=== PATIENT | male | born 1980 | race African-American/Black ===

== ENCOUNTER 2017-12-04 08:20 | Inpatient (IN) | payer OTHER ==
[2017-12-04 08:59] VITALS: BMI 24.6
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
[2017-12-04] MEDS ORDERED: P-EPHED 60MG/TRIPROLIDI 2.5MG TABLET PO PRN (09:39)
[2017-12-04] MEDS ORDERED: hydrOXYzine PAMOATE 25 MG CAPSULE (FP) PO PRN (09:39)
[2017-12-04] MEDS ORDERED: chlordiazePOXIDE HCL 25 MG CAPSULE PO PRN (09:39)
[2017-12-04] MEDS ORDERED: guaiFENesin/D-METHORPHAN HB 10 ML UNIT-DOSE CUPS PO PRN (09:39)
[2017-12-04] MEDS ORDERED: IBUPROFEN 400 MG TABLET (FP) PO PRN (09:39)
[2017-12-04] MEDS ORDERED: LOPERAMIDE HCL 2 MG CAPSULE PO PRN (09:39)
[2017-12-04] MEDS ORDERED: MAGNESIUM CITRATE 300 ML BOTTLE PO PRN (09:39)
[2017-12-04] MEDS ORDERED: MAG HYDROX/AL HYDROX/SIMETH 30 ML UNIT-DOSE CUP PO PRN (09:39)
[2017-12-04] MEDS ORDERED: ACETAMINOPHEN 325 MG TABLET (FP) PO PRN (09:39)
[2017-12-04] MEDS ORDERED: MAGNESIUM HYDROX 2400MG/30ML ORAL SUSPENSION 30 ML CUP PO PRN (09:39)
[2017-12-04] MEDS ORDERED: NICOTINE POLACRILEX 4 MG GUM BUC PRN (09:39)
[2017-12-04] MEDS ORDERED: MENTHOL/PHENOL 1 EACH UD MM PRN (09:39)
[2017-12-04] MEDS ORDERED: chlordiazePOXIDE HCL 25 MG CAPSULE PO ONE (11:00)
[2017-12-04] MEDS: PRENATAL VITAMINS W/ FOLIC ACID TABLET (FP) PO SCH (11:31)
[2017-12-04] MEDS: chlordiazePOXIDE HCL 25 MG CAPSULE PO SCH ×3 (11:31→22:07)
--- NOTE | 2017-12-04 15:41 | EKG ---
Test Reason : Blood Pressure : / mmHG Vent. Rate : 087 BPM Atrial Rate : 087 BPM P-R Int : 146 ms QRS Dur : 078 ms QT Int : 382 ms P-R-T Axes : 018 012 038 degrees QTc Int : 459 ms NORMAL SINUS RHYTHM NORMAL ECG NO PREVIOUS ECGS AVAILABLE Confirmed by MD Lester, Rajesh ([id number]) on 12/04/2017 3:40:47 PM Referred By: Confirmed By:Rajesh Batista MD
[2017-12-04 18:31] LABS: URINE APPEARANCE CLOUDY; URINE BILIRUBIN NEGATIVE (<2.0 mg/dL); URINE COLOR AMBER; URINE GLUCOSE (UA) NEGATIVE (NEGATIVE); URINE KETONE 1+ (NEGATIVE); URINE NITRITE NEGATIVE (NEGATIVE); URINE UROBILINOGEN 4.0 E.U/dl mg/dL (0.2-1.0)
[2017-12-04 18:42] LABS: URINE LEUK ESTERASE 2+ (NEGATIVE); URINE PROTEIN 2+ (NEGATIVE)
[2017-12-04 18:45] LABS: EPI CELLS FEW /HPF (FEW); URINE HYALINE CAST 3 /lpf; URINE MUCUS MANY
[2017-12-04] MEDS ORDERED: MELATONIN 5 MG TABLETS PO PRN (22:00)
[2017-12-04] MEDS: THIAMINE HCL 100 MG TABLET (FP) PO SCH (22:07)
[2017-12-05] MEDS: chlordiazePOXIDE HCL 25 MG CAPSULE PO SCH ×4 (05:22→22:10)
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
[2017-12-05 10:17] LABS: HEMATOCRIT 38.2 % (35.4-49); HEMOGLOBIN 12.8 GM/dL (11.7-16.9); MCH 32.5 pg (25.7-33.7); MCHC 33.6 g/dl (32.0-35.9); MEAN CELL VOLUME 96.8 fl (80-96); MEAN PLT VOLUME 9.1 fl (7.5-11.1); PLATELET COUNT 156 K/MM3 (134-434); RBC 3.95 M/mm3 (4.00-5.60); RDW 13.8 % (11.9-15.9); WHITE BLOOD COUNT 3.4 K/mm3 (4.0-10.0)
[2017-12-05] MEDS: PRENATAL VITAMINS W/ FOLIC ACID TABLET (FP) PO SCH (10:23)
[2017-12-05 10:25] LABS: ALBUMIN 3.2 g/dl (3.4-5.0); ALK PHOS 73 U/L (45-117); ANION GAP 9 MMOL/L (8-16); BILIRUBIN,TOTAL 0.7 mg/dL (0.2-1); BLOOD UREA NITROGEN 13 mg/dL (7-18); CALCIUM 8.6 mg/dL (8.5-10.1); CHLORIDE 103 mmol/L (98-107); CO2 27 mmol/L (21-32); CREATININE 0.6 mg/dL (0.55-1.3); GLUCOSE,RANDOM 110 mg/dL (74-106); POTASSIUM 3.5 mmol/L (3.5-5.1); SGOT/AST 77 U/L (15-37); SGPT/ALT 78 U/L (13-61); SODIUM 139 mmol/L (136-145); TOT PROT 6.5 g/dl (6.4-8.2)
--- NOTE | 2017-12-05 16:00 | PN ---
S CIWA - CIWA Score Nausea/Vomitin Muscle Tremors: 4-Moderate,w/Arms Extend Anxiety: 4-Mod. Anxious/Guarded Agitation: 4-Moderately Restless Paroxysmal Sweats: 3 Orientation: 0-Oriented Tacttile Disturbances: 0-None Auditory Disturbances: 0-None Visual Disturbances: 0-None Headache: 1-Very Mild CIWA-Ar Total Score: 19 BHS Progress Note (SOAP) Subjective: Tremor, interrupted sleep, sweating Objective: 12/05/17 15:56 Last Vital Signs Temp Pulse Resp BP Pulse Ox 96.2 F L 108 H 16 120/81 12/05/17 13:37 12/05/17 13:37 12/05/17 13:37 12/05/17 13:37 Laboratory Tests 12/04/17 12/05/17 12/05/17 12:03 07:30 07:30 WBC 3.4 L RBC 3.95 L Hgb 12.8 Hct 38.2 MCV 96.8 H MCH 32.5 MCHC 33.6 RDW 13.8 Plt Count 156 MPV 9.1 Sodium 139 Potassium 3.5 Chloride 103 Carbon Dioxide 27 Anion Gap 9 BUN 13 Creatinine 0.6 Creat Clearance w eGFR > 60 Random Glucose 110 H Calcium 8.6 Total Bilirubin 0.7 AST 77 H ALT 78 H Alkaline Phosphatase 73 Total Protein 6.5 Albumin 3.2 L Urine Color Janina Urine Appearance Cloudy Urine pH 5.0 Ur Specific [place] 1.027 Urine Protein 2+ H Urine Glucose (UA) Negative Urine Ketones 1+ H Urine Blood 2+ H Urine Nitrite Negative Urine Bilirubin Negative Urine Urobilinogen 4.0 e.u/dl Ur Leukocyte Esterase 2+ H Urine WBC (Auto) 184 Urine RBC (Auto) 48 Ur Epithelial Cells Few Hyaline Casts 3 Urine Mucus Many RPR Titer 12/05/17 07:30 WBC RBC Hgb Hct MCV MCH MCHC RDW Plt Count MPV Sodium Potassium Chloride Carbon Dioxide Anion Gap BUN Creatinine Creat Clearance w eGFR Random Glucose Calcium Total Bilirubin AST ALT Alkaline Phosphatase Total Protein Albumin Urine Color Urine Appearance Urine pH Ur Specific [place] Urine Protein Urine Glucose (UA) Urine Ketones Urine Blood Urine Nitrite Urine Bilirubin Urine Urobilinogen Ur Leukocyte Esterase Urine WBC (Auto) Urine RBC (Auto) Ur Epithelial Cells Hyaline Casts Urine Mucus RPR Titer Nonreactive Labs reviewed: abnormal UA Assessment: 12/05/17 15:58 Withdrawal symptoms Noted with abnormal UA Plan: Continue detox Abnormal UA: encouraged PO water hydration, repeat UA, send urine C&S to rule out UTI
[2017-12-05 20:47] LABS: URINE APPEARANCE CLEAR; URINE BILIRUBIN NEGATIVE (<2.0 mg/dL); URINE COLOR YELLOW; URINE GLUCOSE (UA) NEGATIVE (NEGATIVE); URINE KETONE NEGATIVE (NEGATIVE); URINE NITRITE NEGATIVE (NEGATIVE); URINE PROTEIN NEGATIVE (NEGATIVE); URINE UROBILINOGEN NEGATIVE mg/dL (0.2-1.0)
[2017-12-05 21:13] LABS: URINE LEUK ESTERASE 3+ (NEGATIVE)
[2017-12-05 21:17] LABS: EPI CELLS RARE /HPF (FEW); URINE MUCUS RARE
[2017-12-05] MEDS: THIAMINE HCL 100 MG TABLET (FP) PO SCH (22:10)
[2017-12-06] MEDS: chlordiazePOXIDE HCL 25 MG CAPSULE PO SCH (05:50)
[2017-12-06] MEDS: PRENATAL VITAMINS W/ FOLIC ACID TABLET (FP) PO SCH (10:26)
[2017-12-06] MEDS: chlordiazePOXIDE 5 MG CAPSULE PO SCH ×3 (10:26→22:03)
--- NOTE | 2017-12-06 12:06 | PN ---
S CIWA - CIWA Score Nausea/Vomitin Muscle Tremors: 4-Moderate,w/Arms Extend Anxiety: 3 Agitation: 3 Paroxysmal Sweats: 3 Orientation: 0-Oriented Tacttile Disturbances: 0-None Auditory Disturbances: 0-None Visual Disturbances: 0-None Headache: 1-Very Mild CIWA-Ar Total Score: 16 S Progress Note (SOAP) Subjective: Interrupted sleep, c/o fungus to feet and requesting cream Objective: 12/06/17 12:01 Last Vital Signs Temp Pulse Resp BP Pulse Ox 97.7 F 89 18 111/83 12/06/17 09:59 12/06/17 09:59 12/06/17 09:59 12/06/17 09:59 PE: feet/heel dry with whitish moist areas between toes Laboratory Tests 12/04/17 12/05/17 12/05/17 12:03 07:30 07:30 WBC 3.4 L RBC 3.95 L Hgb 12.8 Hct 38.2 MCV 96.8 H MCH 32.5 MCHC 33.6 RDW 13.8 Plt Count 156 MPV 9.1 Sodium 139 Potassium 3.5 Chloride 103 Carbon Dioxide 27 Anion Gap 9 BUN 13 Creatinine 0.6 Creat Clearance w eGFR > 60 Random Glucose 110 H Calcium 8.6 Total Bilirubin 0.7 AST 77 H ALT 78 H Alkaline Phosphatase 73 Total Protein 6.5 Albumin 3.2 L Urine Color Janina Urine Appearance Cloudy Urine pH 5.0 Ur Specific [place] 1.027 Urine Protein 2+ H Urine Glucose (UA) Negative Urine Ketones 1+ H Urine Blood 2+ H Urine Nitrite Negative Urine Bilirubin Negative Urine Urobilinogen 4.0 e.u/dl Ur Leukocyte Esterase 2+ H Urine WBC (Auto) 184 Urine RBC (Auto) 48 Ur Epithelial Cells Few Hyaline Casts 3 Urine Mucus Many RPR Titer 12/05/17 12/05/17 07:30 15:30 WBC RBC Hgb Hct MCV MCH MCHC RDW Plt Count MPV Sodium Potassium Chloride Carbon Dioxide Anion Gap BUN Creatinine Creat Clearance w eGFR Random Glucose Calcium Total Bilirubin AST ALT Alkaline Phosphatase Total Protein Albumin Urine Color Yellow Urine Appearance Clear Urine pH 6.0 Ur Specific [place] 1.023 Urine Protein Negative Urine Glucose (UA) Negative Urine Ketones Negative Urine Blood Negative Urine Nitrite Negative Urine Bilirubin Negative Urine Urobilinogen Negative Ur Leukocyte Esterase 3+ H Urine WBC (Auto) 33 Urine RBC (Auto) 23 Ur Epithelial Cells Rare Hyaline Casts Urine Mucus Rare RPR Titer Nonreactive Labs reviewed Assessment: 12/06/17 12:03 Withdrawal symptoms Noted with tinea pedis Plan: Continue detox Encouraged PO water intake for hydration Tinea pedis: clotrimazole cream 1% bid to affected areas on feet and between toes, follow up with your PCP post discharge
[2017-12-06] MEDS: CLOTRIMAZOLE 1% CREAM 15 GM TUBE TP SCH ×2 (13:10→22:04)
--- NOTE | 2017-12-06 17:15 | PN ---
[facility] Progress Note Note: Patient s/p reported witnessed fall by RN. As per patient he reports he did not fall, he slipped and keeled on both of his knees. Patient reports no pain or injuries at this time. Vital Signs Temperature 97 F L 12/06/17 14:09 Pulse Rate 83 12/06/17 14:09 Respiratory Rate 16 12/06/17 14:09 Blood Pressure 99/63 12/06/17 14:09 O2 Sat by Pulse Oximetry (%) Laboratory Last Values WBC 3.4 K/mm3 (4.0-10.0) L 12/05/17 07:30 RBC 3.95 M/mm3 (4.00-5.60) L 12/05/17 07:30 Hgb 12.8 GM/dL (11.7-16.9) 12/05/17 07:30 Hct 38.2 % (35.4-49) 12/05/17 07:30 MCV 96.8 fl (80-96) H 12/05/17 07:30 MCH 32.5 pg (25.7-33.7) 12/05/17 07:30 MCHC 33.6 g/dl (32.0-35.9) 12/05/17 07:30 RDW 13.8 % (11.9-15.9) 12/05/17 07:30 Plt Count 156 K/MM3 (134-434) 12/05/17 07:30 MPV 9.1 fl (7.5-11.1) 12/05/17 07:30 Sodium 139 mmol/L (136-145) 12/05/17 07:30 Potassium 3.5 mmol/L (3.5-5.1) 12/05/17 07:30 Chloride 103 mmol/L (98-107) 12/05/17 07:30 Carbon Dioxide 27 mmol/L (21-32) 12/05/17 07:30 Anion Gap 9 MMOL/L (8-16) 12/05/17 07:30 BUN 13 mg/dL (7-18) 12/05/17 07:30 Creatinine 0.6 mg/dL (0.55-1.3) 12/05/17 07:30 Creat Clearance w eGFR > 60 (>60) 12/05/17 07:30 Random Glucose 110 mg/dL (74-106) H 12/05/17 07:30 Calcium 8.6 mg/dL (8.5-10.1) 12/05/17 07:30 Total Bilirubin 0.7 mg/dL (0.2-1) 12/05/17 07:30 AST 77 U/L (15-37) H 12/05/17 07:30 ALT 78 U/L (13-61) H 12/05/17 07:30 Alkaline Phosphatase 73 U/L (45-117) 12/05/17 07:30 Total Protein 6.5 g/dl (6.4-8.2) 12/05/17 07:30 Albumin 3.2 g/dl (3.4-5.0) L 12/05/17 07:30 Urine Color Yellow 12/05/17 15:30 Urine Appearance Clear 12/05/17 15:30 Urine pH 6.0 (5.0-8.0) 12/05/17 15:30 Ur Specific [place] 1.023 (1.001-1.035) 12/05/17 15:30 Urine Protein Negative (NEGATIVE) 12/05/17 15:30 Urine Glucose (UA) Negative (NEGATIVE) 12/05/17 15:30 Urine Ketones Negative (NEGATIVE) 12/05/17 15:30 Urine Blood Negative (NEGATIVE) 12/05/17 15:30 Urine Nitrite Negative (NEGATIVE) 12/05/17 15:30 Urine Bilirubin Negative (<2.0 mg/dL) 12/05/17 15:30 Urine Urobilinogen Negative mg/dL (0.2-1.0) 12/05/17 15:30 Ur Leukocyte Esterase 3+ (NEGATIVE) H 12/05/17 15:30 Urine WBC (Auto) 33 /hpf (3-5) 12/05/17 15:30 Urine RBC (Auto) 23 /hpf (0-3) 12/05/17 15:30 Ur Epithelial Cells Rare /HPF (FEW) 12/05/17 15:30 Hyaline Casts 3 /lpf 12/04/17 12:03 Urine Mucus Rare 12/05/17 15:30 RPR Titer Nonreactive (NONREACTIVE) 12/05/17 07:30 Patient Aox3 no distress no adventitious breath sounds full ROM no sign of visible injury fall protocol #2 Patient refuse further intervention
[2017-12-06] MEDS: THIAMINE HCL 100 MG TABLET (FP) PO SCH (22:03)
[2017-12-07] MEDS: chlordiazePOXIDE 5 MG CAPSULE PO SCH ×2 (06:21→06:26)
--- NOTE | 2017-12-07 07:39 | PN ---
[facility] Progress Note Note: Patient reports that he hit his left 5th finger on the bedside table while getting out of bed. Slight redness and swelling noted. Patient reports pain at 4 /10. Vital signs stable. Vital Signs Temperature 97.2 F L 12/07/17 06:45 Pulse Rate 78 12/07/17 06:45 Respiratory Rate 18 12/07/17 06:45 Blood Pressure 118/77 12/07/17 06:45 O2 Sat by Pulse Oximetry (%) Action: Tylenol 650mg tablet oral Q6H as needed Ice pack to left 5th finger
[2017-12-07] MEDS: CLOTRIMAZOLE 1% CREAM 15 GM TUBE TP SCH ×2 (10:28→22:14)
[2017-12-07] MEDS: PRENATAL VITAMINS W/ FOLIC ACID TABLET (FP) PO SCH (10:28)
[2017-12-07] MEDS: chlordiazePOXIDE HCL 10 MG CAPSULE PO SCH ×3 (10:28→22:14)
--- NOTE | 2017-12-07 13:49 | PN ---
BHS Progress Note (SOAP) Subjective: Interrupted sleep, anxious Objective: 12/07/17 13:47 Last Vital Signs Temp Pulse Resp BP Pulse Ox 97.9 F 89 18 110/72 12/07/17 09:35 12/07/17 09:35 12/07/17 09:35 12/07/17 09:35 Laboratory Tests 12/04/17 12/05/17 12/05/17 12:03 07:30 07:30 WBC 3.4 L RBC 3.95 L Hgb 12.8 Hct 38.2 MCV 96.8 H MCH 32.5 MCHC 33.6 RDW 13.8 Plt Count 156 MPV 9.1 Sodium 139 Potassium 3.5 Chloride 103 Carbon Dioxide 27 Anion Gap 9 BUN 13 Creatinine 0.6 Creat Clearance w eGFR > 60 Random Glucose 110 H Calcium 8.6 Total Bilirubin 0.7 AST 77 H ALT 78 H Alkaline Phosphatase 73 Total Protein 6.5 Albumin 3.2 L Urine Color Janina Urine Appearance Cloudy Urine pH 5.0 Ur Specific [place] 1.027 Urine Protein 2+ H Urine Glucose (UA) Negative Urine Ketones 1+ H Urine Blood 2+ H Urine Nitrite Negative Urine Bilirubin Negative Urine Urobilinogen 4.0 e.u/dl Ur Leukocyte Esterase 2+ H Urine WBC (Auto) 184 Urine RBC (Auto) 48 Ur Epithelial Cells Few Hyaline Casts 3 Urine Mucus Many RPR Titer 12/05/17 12/05/17 07:30 15:30 WBC RBC Hgb Hct MCV MCH MCHC RDW Plt Count MPV Sodium Potassium Chloride Carbon Dioxide Anion Gap BUN Creatinine Creat Clearance w eGFR Random Glucose Calcium Total Bilirubin AST ALT Alkaline Phosphatase Total Protein Albumin Urine Color Yellow Urine Appearance Clear Urine pH 6.0 Ur Specific [place] 1.023 Urine Protein Negative Urine Glucose (UA) Negative Urine Ketones Negative Urine Blood Negative Urine Nitrite Negative Urine Bilirubin Negative Urine Urobilinogen Negative Ur Leukocyte Esterase 3+ H Urine WBC (Auto) 33 Urine RBC (Auto) 23 Ur Epithelial Cells Rare Hyaline Casts Urine Mucus Rare RPR Titer Nonreactive Labs reviewed Assessment: 12/07/17 13:48 Withdrawal symptoms Plan: Continue detox Encouraged PO water hydration
[2017-12-07] MEDS: THIAMINE HCL 100 MG TABLET (FP) PO SCH (22:14)
[2017-12-08] MEDS: chlordiazePOXIDE HCL 10 MG CAPSULE PO SCH (06:12)
[2017-12-08] MEDS: CLOTRIMAZOLE 1% CREAM 15 GM TUBE TP SCH (11:22)
[2017-12-08] MEDS: PRENATAL VITAMINS W/ FOLIC ACID TABLET (FP) PO SCH (11:22)
[2017-12-08 13:14] VITALS: BP 115/76; PULSE 58; TEMP 98.6
--- NOTE | 2017-12-08 14:37 | DS ---
[facility] Detox Discharge Summary Admission Date: 12/04/17 Discharge Date: 12/08/17 - History Present History: Alcohol Dependence - Physical Exam Results Vital Signs: Vital Signs Temperature 98.6 F 12/08/17 13:14 Pulse Rate 58 L 12/08/17 13:14 Respiratory Rate 20 12/08/17 13:14 Blood Pressure 115/76 12/08/17 13:14 O2 Sat by Pulse Oximetry (%) Pertinent Admission Physical Exam Findings: Withdrawal symptoms Laboratory Tests 12/04/17 12/05/17 12/05/17 12:03 07:30 07:30 WBC 3.4 L RBC 3.95 L Hgb 12.8 Hct 38.2 MCV 96.8 H MCH 32.5 MCHC 33.6 RDW 13.8 Plt Count 156 MPV 9.1 Sodium 139 Potassium 3.5 Chloride 103 Carbon Dioxide 27 Anion Gap 9 BUN 13 Creatinine 0.6 Creat Clearance w eGFR > 60 Random Glucose 110 H Calcium 8.6 Total Bilirubin 0.7 AST 77 H ALT 78 H Alkaline Phosphatase 73 Total Protein 6.5 Albumin 3.2 L Urine Color Janina Urine Appearance Cloudy Urine pH 5.0 Ur Specific [place] 1.027 Urine Protein 2+ H Urine Glucose (UA) Negative Urine Ketones 1+ H Urine Blood 2+ H Urine Nitrite Negative Urine Bilirubin Negative Urine Urobilinogen 4.0 e.u/dl Ur Leukocyte Esterase 2+ H Urine WBC (Auto) 184 Urine RBC (Auto) 48 Ur Epithelial Cells Few Hyaline Casts 3 Urine Mucus Many RPR Titer 12/05/17 12/05/17 07:30 15:30 WBC RBC Hgb Hct MCV MCH MCHC RDW Plt Count MPV Sodium Potassium Chloride Carbon Dioxide Anion Gap BUN Creatinine Creat Clearance w eGFR Random Glucose Calcium Total Bilirubin AST ALT Alkaline Phosphatase Total Protein Albumin Urine Color Yellow Urine Appearance Clear Urine pH 6.0 Ur Specific [place] 1.023 Urine Protein Negative Urine Glucose (UA) Negative Urine Ketones Negative Urine Blood Negative Urine Nitrite Negative Urine Bilirubin Negative Urine Urobilinogen Negative Ur Leukocyte Esterase 3+ H Urine WBC (Auto) 33 Urine RBC (Auto) 23 Ur Epithelial Cells Rare Hyaline Casts Urine Mucus Rare RPR Titer Nonreactive Labs reviewed - Treatment Hospital Course: Detox Protocol Followed, Detoxed Safely, Responded well, Discharged Condition Good - Medication Discharge Medications: Ambulatory Orders NK [No Known Home Medication] 12/04/17 - Diagnosis (1) Abnormal finding on urinalysis Current Visit: Yes Status: Acute (2) Alcohol dependence with uncomplicated withdrawal Current Visit: Yes Status: Acute (3) Nicotine dependence Current Visit: Yes Status: Chronic Qualifiers: Nicotine product type: cigarettes Substance use status: uncomplicated Qualified Code(s): F17.210 - Nicotine dependence, cigarettes, uncomplicated (4) Tinea pedis Current Visit: Yes Status: Acute Qualifiers: Laterality: bilateral Qualified Code(s): B35.3 - Tinea pedis - AMA Did Patient Leave Against Medical Advice: No (F/U with your PCP within 1-2 weeks )
== END 2017-12-08 15:26 | disposition home or self-care (01) | DRG 775 ==
LOC: YASAS 08:20 → Y3N 10:46
PROC: HZ2ZZZZ Detoxification Services for Substance Abuse Treatment (ICD-10-PCS; principal; 2017-12-04)
DX: F10.230 Alcohol dependence with withdrawal, uncomplicated (principal); F17.210 Nicotine dependence, cigarettes, uncomplicated; F19.280 Other psychoactive substance dependence with psychoactive substance-induced anxiety disorder; F19.282 Other psychoactive substance dependence with psychoactive substance-induced sleep disorder; E86.0 Dehydration; B35.3 Tinea pedis; R82.90 Unspecified abnormal findings in urine
CPT/HCPCS: 36415; 80053; 81003; 81015; 85027; 86593; 87077; 87086; 93005; 93010